=== PATIENT | male | born 1950 | race Caucasian/White ===

== ENCOUNTER 2021-05-25 16:46 | Emergency (ER) | payer OTHER, MEDICARE ==
[2021-05-25 17:09] VITALS: BP 155/72; PULSE 66; TEMP 99.1; BMI 43.9
[2021-05-25] MEDS ORDERED: ACETAMINOPHEN 500 MG TABLET (FP) PO ONE (17:15)
[2021-05-25] MEDS ORDERED: LIDOCAINE 5% TOPICAL PATCH TP ONE (17:15)
[2021-05-25] MEDS ORDERED: LIDOCAINE 5% TOPICAL PATCH ONE (17:19)
[2021-05-25] MEDS ORDERED: ACETAMINOPHEN 325 MG TABLET (FP) ONE (17:19)
[2021-05-25] MEDS ORDERED: LIDOCAINE PATCH REMOVAL MC SCH (22:00)
== END 2021-05-25 18:21 | disposition home or self-care (01) ==
LOC: FER 16:46
DX: R07.9 Chest pain, unspecified (principal); M25.511 Pain in right shoulder; W19.XXXA Unspecified fall, initial encounter
CPT/HCPCS: 71046-TC-FY; 73030-TC-RT-FY; 73060-TC-RT-FY; 99284-25